=== PATIENT | male | born 1950 | race African-American/Black ===

== ENCOUNTER 2022-05-22 02:15 | Observation (INO) | payer OTHER ==
[2022-05-22 04:32] LABS: BASO % 0.2 % (0-2.0); EOS % 0.3 % (0-4.5); HEMATOCRIT 40.8 % (35.4-49); HEMOGLOBIN 13.1 GM/dL (11.7-16.9); LYMPH % 21.3 % (8-40); MCH 24.7 pg (25.7-33.7); MCHC 32.1 g/dl (32.0-35.9); MEAN PLT VOLUME 8.3 fl (7.5-11.1); MONO % 6.4 % (3.8-10.2); NEUT % 71.8 % (42.8-82.8); PLATELET COUNT 210 10^3/uL (134-434); RDW 15.4 % (11.9-15.9); WHITE BLOOD COUNT 10.5 K/mm3 (4.0-10.0)
[2022-05-22 04:39] LABS: INR 1.13 (0.83-1.09)
[2022-05-22 04:42] LABS: ACTIVATED PTT 27.9 SECONDS (25.2-36.5)
[2022-05-22 04:55] LABS: CALCIUM 9.2 mg/dL (8.5-10.1)
[2022-05-22 04:56] LABS: ALBUMIN 3.8 g/dl (3.4-5.0); BLOOD UREA NITROGEN 28.7 mg/dL (7-18)
[2022-05-22 04:59] LABS: CREATININE 1.6 mg/dL (0.55-1.3)
[2022-05-22 05:01] LABS: BILIRUBIN,TOTAL 0.4 mg/dL (0.2-1); TOT PROT 7.2 g/dl (6.4-8.2)
[2022-05-22] MEDS ORDERED: SODIUM CHLORIDE 500 ML IV STA (05:48)
[2022-05-22] MEDS ORDERED: LORazepam 1 MG TABLET PO PRN (07:19)
[2022-05-22 07:34] LABS: N-TERMINAL BNP 64.5 pg/ml (5-125)
[2022-05-22] MEDS: LORazepam 1 MG TABLET PO SCH ×4 (07:43→23:43)
[2022-05-22] MEDS ORDERED: FOLIC ACID INJECTION - 1 MG, THIAMINE HCL 100 MG, MULTIVIT INJECTION ADULT 10 ML in SOD... IVPB ONE (08:30)
[2022-05-22 08:33] LABS: EPI CELLS 23 /uL (0-25.1); HYALINE CASTS 0 /uL (0-3.1); PH,URINE 5.5 (5.0-8.0); URINE APPEARANCE CLEAR; URINE BACTERIA 6 /uL (0-1359); URINE BILIRUBIN NEGATIVE (NEGATIVE); URINE COLOR YELLOW; URINE GLUCOSE (UA) NEGATIVE (NEGATIVE); URINE KETONE NEGATIVE (NEGATIVE); URINE LEUK ESTERASE 2+ (NEGATIVE); URINE NITRITE NEGATIVE (NEGATIVE); URINE PROTEIN NEGATIVE (NEGATIVE); URINE RBC 6 /uL (0-23.9); URINE WBC 149 /uL (0-25.8)
[2022-05-22] MEDS ORDERED: ACETAMINOPHEN 325 MG TABLET (FP) PO PRN ×2 (08:40→08:41)
[2022-05-22] MEDS ORDERED: ENOXAPARIN NA (PORCINE) 40 MG/0.4 ML DISP.SYRIN SQ SCH (10:00)
[2022-05-22] MEDS ORDERED: TAMSULOSIN HCL 0.4 MG CAP ONE (10:06)
[2022-05-22] MEDS ORDERED: FOLIC ACID 1 MG TABLET (FP) ONE (10:06)
[2022-05-22] MEDS ORDERED: CEFTRIAXONE 1 GM/50 ML BAG ONE (10:06)
[2022-05-22] MEDS: FOLIC ACID 1 MG TABLET (FP) PO SCH (10:19)
[2022-05-22] MEDS: TAMSULOSIN HCL 0.4 MG CAP PO SCH (10:19)
[2022-05-22] MEDS: CEFTRIAXONE 1 GM in DEXTROSE 5%-WATER - 50 ML IVPB SCH ×2 (10:19→12:38)
[2022-05-22 10:24] LABS: CREATININE, URINE RANDOM 63.7 mg/dL (30-150)
[2022-05-22 10:53] LABS: CREATININE, URINE RANDOM 64.7 mg/dL (30-150)
[2022-05-22] MEDS ORDERED: THIAMINE HCL 200 MG/2 ML VIAL ONE (12:41)
[2022-05-22] MEDS ORDERED: LORazepam 1 MG TABLET ONE ×3 (12:41→23:25)
[2022-05-22] MEDS: THIAMINE HCL 200 MG/2 ML VIAL IVPB SCH (12:47)
[2022-05-22] MEDS ORDERED: HEPARIN NA (PORCINE) 5,000 UNITS/ML 1ML VIAL ONE ×2 (15:32→23:25)
[2022-05-22] MEDS: HEPARIN NA (PORCINE) 5,000 UNITS/ML 1ML VIAL SQ SCH ×2 (15:46→23:43)
[2022-05-22] MEDS ORDERED: ATORVASTATIN CA 20 MG TABLET (FP) ONE (23:24)
[2022-05-22] MEDS: ATORVASTATIN CA 20 MG TABLET (FP) PO SCH (23:43)
[2022-05-23 02:10] VITALS: RESP 20; BMI 40.4
[2022-05-23] MEDS: LORazepam 1 MG TABLET PO SCH ×4 (05:11→23:12)
[2022-05-23] MEDS: HEPARIN NA (PORCINE) 5,000 UNITS/ML 1ML VIAL SQ SCH ×3 (05:19→21:52)
[2022-05-23] MEDS ORDERED: LABETALOL HCL 100 MG TABLET (FP) PO ONE (06:47)
[2022-05-23] MEDS ORDERED: hydrALAZINE HCL 25 MG TABLET (FP) PO ONE (09:37)
[2022-05-23] MEDS: FOLIC ACID 1 MG TABLET (FP) PO SCH (10:00)
[2022-05-23] MEDS: TAMSULOSIN HCL 0.4 MG CAP PO SCH (10:00)
[2022-05-23] MEDS: CEFTRIAXONE 1 GM in DEXTROSE 5%-WATER - 50 ML IVPB SCH (10:00)
[2022-05-23] MEDS: THIAMINE HCL 200 MG/2 ML VIAL IVPB SCH (10:01)
[2022-05-23 12:56] LABS: BASO % 1.5 % (0-2.0); EOS % 0.6 % (0-4.5); HEMATOCRIT 39.8 % (35.4-49); HEMOGLOBIN 12.6 GM/dL (11.7-16.9); LYMPH % 35.9 % (8-40); MCH 24.3 pg (25.7-33.7); MCHC 31.6 g/dl (32.0-35.9); MEAN PLT VOLUME 8.6 fl (7.5-11.1); MONO % 5.9 % (3.8-10.2); NEUT % 56.1 % (42.8-82.8); PLATELET COUNT 208 10^3/uL (134-434); RBC 5.18 M/mm3 (4.00-5.60); RDW 15.4 % (11.9-15.9); WHITE BLOOD COUNT 7.8 K/mm3 (4.0-10.0)
[2022-05-23 13:21] LABS: ALBUMIN 3.3 g/dl (3.4-5.0); BLOOD UREA NITROGEN 19.5 mg/dL (7-18); CALCIUM 8.9 mg/dL (8.5-10.1); MAGNESIUM 2.4 mg/dL (1.8-2.4)
[2022-05-23 13:23] LABS: CREATININE 1.1 mg/dL (0.55-1.3); PHOSPHOROUS 3.1 mg/dL (2.5-4.9)
[2022-05-23 13:25] LABS: BILIRUBIN,TOTAL 0.2 mg/dL (0.2-1); TOT PROT 6.5 g/dl (6.4-8.2)
[2022-05-23] MEDS: ATORVASTATIN CA 20 MG TABLET (FP) PO SCH (21:51)
[2022-05-23] MEDS: GABAPENTIN 300 MG CAPSULE PO SCH (21:51)
[2022-05-23] MEDS ORDERED: LABETALOL HCL 200 MG TABLET (FP) PO SCH (22:00)
[2022-05-24] MEDS ORDERED: LORazepam 0.5 MG TABLET PO PRN
[2022-05-24] MEDS: HEPARIN NA (PORCINE) 5,000 UNITS/ML 1ML VIAL SQ SCH ×2 (05:43→13:09)
[2022-05-24] MEDS: LORazepam 0.5 MG TABLET PO SCH ×2 (05:44→11:10)
[2022-05-24] MEDS: GABAPENTIN 300 MG CAPSULE PO SCH ×2 (05:44→13:09)
[2022-05-24 07:17] VITALS: PULSE 82
[2022-05-24] MEDS: TAMSULOSIN HCL 0.4 MG CAP PO SCH (08:23)
[2022-05-24] MEDS ORDERED: LABETALOL HCL 200 MG TABLET (FP) PO SCH (09:19)
[2022-05-24] MEDS: CEFTRIAXONE 1 GM in DEXTROSE 5%-WATER - 50 ML IVPB SCH (09:53)
[2022-05-24] MEDS: FOLIC ACID 1 MG TABLET (FP) PO SCH (09:53)
[2022-05-24] MEDS ORDERED: hydrALAZINE HCL 25 MG TABLET (FP) PO SCH (10:00)
[2022-05-24] MEDS: THIAMINE HCL 200 MG/2 ML VIAL IVPB SCH (10:41)
[2022-05-24 14:39] LABS: BASO % 0.6 % (0-2.0); EOS % 1.4 % (0-4.5); HEMATOCRIT 40.4 % (35.4-49); HEMOGLOBIN 12.4 GM/dL (11.7-16.9); LYMPH % 34.6 % (8-40); MCH 23.9 pg (25.7-33.7); MCHC 30.8 g/dl (32.0-35.9); MEAN CELL VOLUME 77.7 fl (80-96); MEAN PLT VOLUME 9.6 fl (7.5-11.1); MONO % 7.3 % (3.8-10.2); NEUT % 56.1 % (42.8-82.8); PLATELET COUNT 217 10^3/uL (134-434); RDW 15.7 % (11.9-15.9); WHITE BLOOD COUNT 8.4 K/mm3 (4.0-10.0)
[2022-05-24 15:05] LABS: ALBUMIN 3.4 g/dl (3.4-5.0); BLOOD UREA NITROGEN 15.1 mg/dL (7-18); MAGNESIUM 2.2 mg/dL (1.8-2.4)
[2022-05-24 15:07] LABS: CREATININE 1.1 mg/dL (0.55-1.3); PHOSPHOROUS 3.2 mg/dL (2.5-4.9)
[2022-05-24 15:10] LABS: BILIRUBIN,TOTAL 0.3 mg/dL (0.2-1); TOT PROT 6.9 g/dl (6.4-8.2)
[2022-05-24 15:27] VITALS: BP 149/90; TEMP 98.7
[2022-05-25] MEDS ORDERED: LORazepam 0.5 MG TABLET PO ONE (05:00)
== END 2022-05-24 16:25 | disposition other institution (70) ==
LOC: JER 02:15 → JERBED 09:16 → UNDOADMOB 09:16 → INTOOBSV 09:16 → JERBED 14:26 → J8W 05-23 00:28
PROVIDERS: ADMIT Internal Medicine; ATTEND Internal Medicine
PROC: 3E03329 Introduction of Other Anti-infective into Peripheral Vein, Percutaneous Approach (ICD-10-PCS; principal; 2022-05-22)
PROC: 3E023GC Introduction of Other Therapeutic Substance into Muscle, Percutaneous Approach (ICD-10-PCS; 2022-05-22)
PROC: 3E033GC Introduction of Other Therapeutic Substance into Peripheral Vein, Percutaneous Approach (ICD-10-PCS; 2022-05-22)
DX: N17.9 Acute kidney failure, unspecified (principal); N39.0 Urinary tract infection, site not specified; F19.10 Other psychoactive substance abuse, uncomplicated; N40.0 Benign prostatic hyperplasia without lower urinary tract symptoms; F14.20 Cocaine dependence, uncomplicated; I10 Essential (primary) hypertension; B19.20 Unspecified viral hepatitis C without hepatic coma; B19.10 Unspecified viral hepatitis B without hepatic coma; Z29.8 Encounter for other specified prophylactic measures; Z88.8 Allergy status to other drugs, medicaments and biological substances; E66.01 Morbid (severe) obesity due to excess calories; Z68.41 Body mass index [BMI] 40.0-44.9, adult
CPT/HCPCS: 36415; 70450-TC; 71045-TC-FY; 76775-TC; 80053; 81003; 82550; 82553; 82570; 83735; 83880; 84100; 84156; 84300; 84443; 84484; 85025; 85610; 85730; 87086; 93005; 93010; 96365; 96367; 96372; 97116-GP; 97161-GP; 99285-25; C9803-CS; G0378; J1644; U0003; U0005

== ENCOUNTER 2022-05-24 17:11 | Inpatient (IN) | payer OTHER ==
[2022-05-24 19:07] VITALS: BMI 37.4
[2022-05-24] MEDS ORDERED: ACETAMINOPHEN 325 MG TABLET (FP) PO PRN (20:03)
[2022-05-24] MEDS ORDERED: NICOTINE 10 MG CARTRIDGE (INHALER) IH PRN (20:03)
[2022-05-24] MEDS ORDERED: MAGNESIUM CITRATE 300 ML BOTTLE PO PRN (20:03)
[2022-05-24] MEDS ORDERED: hydrOXYzine PAMOATE 25 MG CAPSULE (FP) PO PRN (20:03)
[2022-05-24] MEDS ORDERED: P-EPHED 60MG/TRIPROLIDI 2.5MG TABLET PO PRN (20:03)
[2022-05-24] MEDS ORDERED: BENZOCAINE/MENTHOL (CHLORASEPTIC ) LOZENGE MM PRN (20:03)
[2022-05-24] MEDS ORDERED: LOPERAMIDE HCL 2 MG CAPSULE PO PRN (20:03)
[2022-05-24] MEDS ORDERED: guaiFENesin 200 MG/10 ML 10 ML UNIT-DOSE CUPS PO PRN (20:03)
[2022-05-24] MEDS ORDERED: MAGNESIUM HYDROX 2400MG/30ML ORAL SUSPENSION 30 ML CUP PO PRN (20:03)
[2022-05-24] MEDS ORDERED: NICOTINE POLACRILEX 2 MG GUM BUC PRN (20:03)
[2022-05-24] MEDS: ATORVASTATIN CA 20 MG TABLET (FP) PO SCH (22:38)
[2022-05-24] MEDS: THIAMINE HCL 100 MG TABLET (FP) PO SCH (22:39)
[2022-05-24] MEDS: hydrALAZINE HCL 25 MG TABLET (FP) PO SCH (22:39)
[2022-05-24] MEDS: MELATONIN 5 MG TABLETS PO PRN (22:39)
[2022-05-24] MEDS: GABAPENTIN 300 MG CAPSULE PO SCH (22:39)
[2022-05-25] MEDS: GABAPENTIN 300 MG CAPSULE PO SCH ×3 (06:33→21:11)
[2022-05-25] MEDS: LABETALOL HCL 200 MG TABLET (FP) PO SCH ×4 (07:31→21:11)
[2022-05-25] MEDS: PRENATAL VITAMINS W/ FOLIC ACID TABLET (FP) PO SCH (09:37)
[2022-05-25] MEDS: TAMSULOSIN HCL 0.4 MG CAP PO SCH (09:37)
[2022-05-25] MEDS: hydrALAZINE HCL 25 MG TABLET (FP) PO SCH ×2 (09:38→21:11)
[2022-05-25] MEDS: THIAMINE HCL 100 MG TABLET (FP) PO SCH (21:11)
[2022-05-25] MEDS: MELATONIN 5 MG TABLETS PO PRN (21:11)
[2022-05-25] MEDS: ATORVASTATIN CA 20 MG TABLET (FP) PO SCH (21:11)
[2022-05-25] MEDS: MAG HYDROX/AL HYDROX/SIMETH 30 ML UNIT-DOSE CUP PO PRN (21:11)
[2022-05-26] MEDS: GABAPENTIN 300 MG CAPSULE PO SCH ×3 (06:11→21:11)
[2022-05-26] MEDS: PRENATAL VITAMINS W/ FOLIC ACID TABLET (FP) PO SCH (09:30)
[2022-05-26] MEDS: TAMSULOSIN HCL 0.4 MG CAP PO SCH (09:30)
[2022-05-26] MEDS: hydrALAZINE HCL 25 MG TABLET (FP) PO SCH ×2 (09:30→21:11)
[2022-05-26] MEDS: LABETALOL HCL 200 MG TABLET (FP) PO SCH ×2 (09:31→21:13)
[2022-05-26] MEDS: ATORVASTATIN CA 20 MG TABLET (FP) PO SCH (21:11)
[2022-05-26] MEDS: THIAMINE HCL 100 MG TABLET (FP) PO SCH (21:11)
[2022-05-26] MEDS: MELATONIN 5 MG TABLETS PO PRN (21:14)
[2022-05-26] MEDS: MAG HYDROX/AL HYDROX/SIMETH 30 ML UNIT-DOSE CUP PO PRN (21:15)
[2022-05-27] MEDS: GABAPENTIN 300 MG CAPSULE PO SCH ×3 (06:19→21:17)
[2022-05-27] MEDS: PRENATAL VITAMINS W/ FOLIC ACID TABLET (FP) PO SCH (09:43)
[2022-05-27] MEDS: TAMSULOSIN HCL 0.4 MG CAP PO SCH (09:44)
[2022-05-27] MEDS ORDERED: METHOCARBAMOL 500 MG TABLET PO PRN (10:41)
[2022-05-27] MEDS: hydrALAZINE HCL 25 MG TABLET (FP) PO SCH ×2 (10:57→21:17)
[2022-05-27] MEDS: LABETALOL HCL 200 MG TABLET (FP) PO SCH ×2 (10:57→21:17)
[2022-05-27] MEDS: FAMOTIDINE 10 MG TABLET PO SCH (11:03)
[2022-05-27] MEDS: THIAMINE HCL 100 MG TABLET (FP) PO SCH (21:17)
[2022-05-27] MEDS: MELATONIN 5 MG TABLETS PO PRN (21:17)
[2022-05-27] MEDS: ATORVASTATIN CA 20 MG TABLET (FP) PO SCH (21:17)
[2022-05-28] MEDS: GABAPENTIN 300 MG CAPSULE PO SCH ×3 (06:30→21:09)
[2022-05-28] MEDS: PRENATAL VITAMINS W/ FOLIC ACID TABLET (FP) PO SCH (09:55)
[2022-05-28] MEDS: hydrALAZINE HCL 25 MG TABLET (FP) PO SCH ×2 (09:55→21:08)
[2022-05-28] MEDS: TAMSULOSIN HCL 0.4 MG CAP PO SCH (09:55)
[2022-05-28] MEDS: LABETALOL HCL 200 MG TABLET (FP) PO SCH ×2 (09:56→21:14)
[2022-05-28] MEDS ORDERED: PANTOPRAZOLE 20 MG TABLET PO SCH (10:00)
[2022-05-28] MEDS ORDERED: FAMOTIDINE 10 MG TABLET PO SCH (10:00)
[2022-05-28] MEDS: FAMOTIDINE 10 MG TABLET PO SCH ×2 (10:36→21:08)
[2022-05-28] MEDS: ATORVASTATIN CA 20 MG TABLET (FP) PO SCH (21:08)
[2022-05-28] MEDS: THIAMINE HCL 100 MG TABLET (FP) PO SCH (21:09)
[2022-05-28] MEDS: MELATONIN 5 MG TABLETS PO PRN (21:09)
[2022-05-29] MEDS: GABAPENTIN 300 MG CAPSULE PO SCH ×3 (06:16→21:10)
[2022-05-29] MEDS: TAMSULOSIN HCL 0.4 MG CAP PO SCH (09:43)
[2022-05-29] MEDS: hydrALAZINE HCL 25 MG TABLET (FP) PO SCH ×2 (09:44→21:11)
[2022-05-29] MEDS: FAMOTIDINE 10 MG TABLET PO SCH ×2 (09:44→22:50)
[2022-05-29] MEDS: LABETALOL HCL 200 MG TABLET (FP) PO SCH ×2 (09:46→21:09)
[2022-05-29] MEDS: PRENATAL VITAMINS W/ FOLIC ACID TABLET (FP) PO SCH (09:46)
[2022-05-29] MEDS: ATORVASTATIN CA 20 MG TABLET (FP) PO SCH (21:11)
[2022-05-29] MEDS: MELATONIN 5 MG TABLETS PO PRN (21:11)
[2022-05-29] MEDS: THIAMINE HCL 100 MG TABLET (FP) PO SCH (21:11)
[2022-05-30] MEDS: GABAPENTIN 300 MG CAPSULE PO SCH ×3 (07:04→21:11)
[2022-05-30] MEDS: TAMSULOSIN HCL 0.4 MG CAP PO SCH (08:08)
[2022-05-30] MEDS: PRENATAL VITAMINS W/ FOLIC ACID TABLET (FP) PO SCH (09:39)
[2022-05-30] MEDS: FAMOTIDINE 10 MG TABLET PO SCH ×2 (09:40→21:12)
[2022-05-30] MEDS: hydrALAZINE HCL 25 MG TABLET (FP) PO SCH ×2 (09:40→21:11)
[2022-05-30] MEDS: LABETALOL HCL 200 MG TABLET (FP) PO SCH (09:41)
[2022-05-30] MEDS: THIAMINE HCL 100 MG TABLET (FP) PO SCH (21:11)
[2022-05-30] MEDS: ATORVASTATIN CA 20 MG TABLET (FP) PO SCH (21:11)
[2022-05-30] MEDS: LABETALOL HCL 100 MG TABLET (FP) PO SCH (21:13)
[2022-05-30] MEDS: MELATONIN 5 MG TABLETS PO PRN (21:14)
[2022-05-31] MEDS: GABAPENTIN 300 MG CAPSULE PO SCH ×3 (06:28→21:11)
[2022-05-31] MEDS: TAMSULOSIN HCL 0.4 MG CAP PO SCH (09:50)
[2022-05-31] MEDS: FAMOTIDINE 10 MG TABLET PO SCH ×2 (09:51→21:11)
[2022-05-31] MEDS: PRENATAL VITAMINS W/ FOLIC ACID TABLET (FP) PO SCH (09:51)
[2022-05-31] MEDS: LABETALOL HCL 100 MG TABLET (FP) PO SCH ×2 (10:37→21:13)
[2022-05-31] MEDS: hydrALAZINE HCL 25 MG TABLET (FP) PO SCH ×2 (10:37→21:11)
[2022-05-31] MEDS: METHYL SALICYLATE/MENTHOL OINT 30 GM TUBE TP SCH ×2 (11:06→22:14)
[2022-05-31] MEDS: ATORVASTATIN CA 20 MG TABLET (FP) PO SCH (21:11)
[2022-05-31] MEDS: THIAMINE HCL 100 MG TABLET (FP) PO SCH (21:11)
[2022-05-31] MEDS: MELATONIN 5 MG TABLETS PO PRN (21:13)
[2022-06-01] MEDS: GABAPENTIN 300 MG CAPSULE PO SCH ×3 (05:47→21:11)
[2022-06-01] MEDS: PRENATAL VITAMINS W/ FOLIC ACID TABLET (FP) PO SCH (09:37)
[2022-06-01] MEDS: FAMOTIDINE 10 MG TABLET PO SCH ×2 (09:38→21:11)
[2022-06-01] MEDS: TAMSULOSIN HCL 0.4 MG CAP PO SCH (09:38)
[2022-06-01] MEDS: METHYL SALICYLATE/MENTHOL OINT 30 GM TUBE TP SCH ×2 (09:39→21:11)
[2022-06-01] MEDS: hydrALAZINE HCL 25 MG TABLET (FP) PO SCH ×2 (10:16→21:11)
[2022-06-01] MEDS: LABETALOL HCL 100 MG TABLET (FP) PO SCH ×2 (10:16→21:12)
[2022-06-01] MEDS: ATORVASTATIN CA 20 MG TABLET (FP) PO SCH (21:11)
[2022-06-01] MEDS: THIAMINE HCL 100 MG TABLET (FP) PO SCH (21:11)
[2022-06-02 05:15] VITALS: RESP 18
[2022-06-02] MEDS: GABAPENTIN 300 MG CAPSULE PO SCH ×3 (06:26→21:08)
[2022-06-02] MEDS: PRENATAL VITAMINS W/ FOLIC ACID TABLET (FP) PO SCH (09:42)
[2022-06-02] MEDS: FAMOTIDINE 10 MG TABLET PO SCH ×2 (09:43→21:07)
[2022-06-02] MEDS: TAMSULOSIN HCL 0.4 MG CAP PO SCH (09:43)
[2022-06-02] MEDS: METHYL SALICYLATE/MENTHOL OINT 30 GM TUBE TP SCH ×2 (09:44→21:08)
[2022-06-02] MEDS: LABETALOL HCL 100 MG TABLET (FP) PO SCH ×2 (11:39→21:10)
[2022-06-02] MEDS: hydrALAZINE HCL 25 MG TABLET (FP) PO SCH ×2 (11:39→21:08)
[2022-06-02] MEDS: MELATONIN 5 MG TABLETS PO PRN (21:08)
[2022-06-02] MEDS: ATORVASTATIN CA 20 MG TABLET (FP) PO SCH (21:08)
[2022-06-02] MEDS: THIAMINE HCL 100 MG TABLET (FP) PO SCH (21:08)
[2022-06-03] MEDS: GABAPENTIN 300 MG CAPSULE PO SCH ×3 (06:53→21:16)
[2022-06-03] MEDS: PRENATAL VITAMINS W/ FOLIC ACID TABLET (FP) PO SCH (09:55)
[2022-06-03] MEDS: METHYL SALICYLATE/MENTHOL OINT 30 GM TUBE TP SCH ×2 (09:55→21:16)
[2022-06-03] MEDS: TAMSULOSIN HCL 0.4 MG CAP PO SCH (09:55)
[2022-06-03] MEDS: LABETALOL HCL 100 MG TABLET (FP) PO SCH ×2 (09:56→21:14)
[2022-06-03] MEDS: hydrALAZINE HCL 25 MG TABLET (FP) PO SCH ×2 (09:56→21:15)
[2022-06-03] MEDS: FAMOTIDINE 10 MG TABLET PO SCH ×2 (09:57→21:17)
[2022-06-03] MEDS: ATORVASTATIN CA 20 MG TABLET (FP) PO SCH (21:14)
[2022-06-03] MEDS: THIAMINE HCL 100 MG TABLET (FP) PO SCH (21:15)
[2022-06-03] MEDS: MELATONIN 5 MG TABLETS PO PRN (21:19)
[2022-06-04] MEDS: GABAPENTIN 300 MG CAPSULE PO SCH ×3 (06:36→21:21)
[2022-06-04] MEDS: PRENATAL VITAMINS W/ FOLIC ACID TABLET (FP) PO SCH (09:44)
[2022-06-04] MEDS: TAMSULOSIN HCL 0.4 MG CAP PO SCH (09:45)
[2022-06-04] MEDS: LABETALOL HCL 100 MG TABLET (FP) PO SCH ×2 (09:45→21:21)
[2022-06-04] MEDS: hydrALAZINE HCL 25 MG TABLET (FP) PO SCH ×2 (09:45→21:22)
[2022-06-04] MEDS: METHYL SALICYLATE/MENTHOL OINT 30 GM TUBE TP SCH ×2 (11:10→21:28)
[2022-06-04] MEDS: FAMOTIDINE 10 MG TABLET PO SCH ×2 (11:55→21:21)
[2022-06-04] MEDS: MELATONIN 5 MG TABLETS PO PRN (21:21)
[2022-06-04] MEDS: ATORVASTATIN CA 20 MG TABLET (FP) PO SCH (21:21)
[2022-06-04] MEDS: THIAMINE HCL 100 MG TABLET (FP) PO SCH (21:22)
[2022-06-05] MEDS: GABAPENTIN 300 MG CAPSULE PO SCH ×3 (06:13→21:15)
[2022-06-05] MEDS: TAMSULOSIN HCL 0.4 MG CAP PO SCH (09:47)
[2022-06-05] MEDS: PRENATAL VITAMINS W/ FOLIC ACID TABLET (FP) PO SCH (09:47)
[2022-06-05] MEDS: FAMOTIDINE 10 MG TABLET PO SCH ×2 (09:48→21:14)
[2022-06-05] MEDS: METHYL SALICYLATE/MENTHOL OINT 30 GM TUBE TP SCH ×2 (09:48→21:15)
[2022-06-05] MEDS: hydrALAZINE HCL 25 MG TABLET (FP) PO SCH ×2 (09:50→21:14)
[2022-06-05] MEDS: LABETALOL HCL 100 MG TABLET (FP) PO SCH ×2 (10:55→21:14)
[2022-06-05] MEDS: ATORVASTATIN CA 20 MG TABLET (FP) PO SCH (21:15)
[2022-06-05] MEDS: THIAMINE HCL 100 MG TABLET (FP) PO SCH (21:15)
[2022-06-05] MEDS: MELATONIN 5 MG TABLETS PO PRN (21:16)
[2022-06-06] MEDS: GABAPENTIN 300 MG CAPSULE PO SCH (06:08)
[2022-06-06 07:06] VITALS: TEMP 97.8
[2022-06-06] MEDS: PRENATAL VITAMINS W/ FOLIC ACID TABLET (FP) PO SCH (09:37)
[2022-06-06] MEDS: FAMOTIDINE 10 MG TABLET PO SCH (09:37)
[2022-06-06] MEDS: METHYL SALICYLATE/MENTHOL OINT 30 GM TUBE TP SCH (09:37)
[2022-06-06] MEDS: TAMSULOSIN HCL 0.4 MG CAP PO SCH (09:37)
[2022-06-06] MEDS: hydrALAZINE HCL 25 MG TABLET (FP) PO SCH (10:21)
[2022-06-06] MEDS: LABETALOL HCL 100 MG TABLET (FP) PO SCH (10:22)
[2022-06-06 11:04] VITALS: BP 104/65; PULSE 80
== END 2022-06-06 11:55 | disposition home or self-care (01) | DRG 895 ==
LOC: YASAS 17:11 → Y5N 20:03
PROVIDERS: ADMIT Allergy & Immunology; ATTEND Surgery
PROC: HZ42ZZZ Group Counseling for Substance Abuse Treatment, Cognitive-Behavioral (ICD-10-PCS; principal; 2022-05-24)
DX: F11.20 Opioid dependence, uncomplicated (principal); F14.20 Cocaine dependence, uncomplicated; F13.20 Sedative, hypnotic or anxiolytic dependence, uncomplicated; N17.9 Acute kidney failure, unspecified; N39.0 Urinary tract infection, site not specified; F10.20 Alcohol dependence, uncomplicated; F17.210 Nicotine dependence, cigarettes, uncomplicated; I10 Essential (primary) hypertension; K21.9 Gastro-esophageal reflux disease without esophagitis; N40.1 Benign prostatic hyperplasia with lower urinary tract symptoms; R33.8 Other retention of urine; R22.31 Localized swelling, mass and lump, right upper limb; R76.11 Nonspecific reaction to tuberculin skin test without active tuberculosis; Z86.19 Personal history of other infectious and parasitic diseases; Z88.8 Allergy status to other drugs, medicaments and biological substances
CPT/HCPCS: 71045-TC-FY